=== PATIENT | male | born 1955 | race Caucasian/White ===

== ENCOUNTER 2018-08-07 20:56 | Emergency (ER) | payer OTHER ==
[~2018-08-07] VITALS: Ht 175.3 cm; Wt 80.0 kg
[2018-08-07 20:59] VITALS: Ht 175.3 cm; Wt 80.0 kg
[2018-08-08] MEDS ORDERED: KETOROLAC 30 MG INJ IM STA (00:33)
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
[2018-08-08] MEDS ORDERED: DEXAMETHASONE 10 MG/ML 1 ML INJ IM ONE (01:00)
[2018-08-08] MEDS ORDERED: NAPR-985 PO (01:07)
[2018-08-08] MEDS ORDERED: PRED20TA PO (01:07)
[2018-08-08] MEDS ORDERED: TRAM50TA2 PO (01:10)
[2018-08-08 01:14] VITALS: BP 135/65; PULSE 65; RESP 20
== END 2018-08-08 01:35 | disposition home or self-care (01) ==
LOC: FTE 20:56
DX: M54.9 Dorsalgia, unspecified (principal); E11.9 Type 2 diabetes mellitus without complications
CPT/HCPCS: 96372; J1100; J1885; Z7502

== ENCOUNTER 2018-08-29 19:36 | Emergency (ER) | payer OTHER ==
[~2018-08-29] VITALS: Wt 87.7 kg
[~2018-08-29 19:36] MED LIST: NAPR-985 PO; PRED20TA PO; TRAM50TA2 PO
--- NOTE | 2018-08-29 20:58 | ERD ---
ER Documentation Chief Complaint Chief Complaint BACK PAIN X'S 1 WEEK HPI This is a 62-year-old male who presents emergency department with complaints of lower back pain that radiates to bilateral lower extremity. Stated that this has been going on for about a week. Stated he was here last 08/07/2018 and was given a shot of medicine and this has relieved him. He also stated that he has history of chronic lower back pain and sciatica. Pain was described as sharp that radiates to bilateral lower extremities. Denies headache, head injury, loss of consciousness, dizziness, neck pain, neck stiffness, throat pain, difficulty swallowing, difficulty breathing lying flat, shoulder pain, chest pain, abdominal pain, nausea, vomiting, constipation, diarrhea, urinary symptoms, loss of bowel and bladder control, trauma, injury, falls, difficulty walking due to pain, numbness or tingling sensation, calf pain, recent travel, recent major surgery in the last 3 weeks, calf pain, recent long travel, recent exposure to any illness, recent antibiotic use in the last 3 months, fever, chills, seizures. Past medical history: Diabetes. Chronic pain. Surgical history: Social: Denies smoking, use of alcoholic beverages, use of illegal drugs. ROS All systems reviewed and are negative except as per history of present illness. Medications Home Meds Active Scripts Tramadol HCl (Tramadol HCl) 50 Mg Tablet, 50 MG PO Q4 PRN for SEVERE PAIN LEVEL 7-10, #5 TAB Prov:KATY MCNEAL 08/29/18 Omeprazole* (Omeprazole*) 40 Mg Capsule.dr, 40 MG PO DAILY, #30 CAP Prov:KATY MCNEAL 08/29/18 Ibuprofen* (Motrin*) 800 Mg Tab, 800 MG PO Q6H PRN for PAIN AND OR ELEVATED TEMP, #20 TAB Prov:KATY MCNEAL 08/29/18 Tramadol HCl (Tramadol HCl) 50 Mg Tablet, 50 MG PO Q6 PRN for PAIN, #7 TAB Take as needed for sever pain 7-10 Prov:CORNELL BARRAZA PA-C 08/08/18 Naproxen* (Naprosyn*) 500 Mg Tablet, 500 MG PO BID PRN for PAIN AND/OR INFLAMMATION, #30 TAB Prov:CORNELL BARRAZA PA-C 08/08/18 Prednisone* (Prednisone*) 20 Mg Tab, 40 MG PO DAILY for 4 Days, TAB Prov:CORNELL BARRAZA BENJI 08/08/18 Allergies Allergies: Coded Allergies: No Known Allergy (Unverified , 08/07/18) PMhx/Soc History of Surgery: No Anesthesia Reaction: No Hx Neurological Disorder: No Hx Respiratory Disorders: No Hx Cardiac Disorders: Yes Hx Psychiatric Problems: No Hx Alcohol Use: No Hx Substance Use: No Hx Tobacco Use: No Smoking Status: Never smoker Physical Exam Vitals Vital Signs Date Temp Pulse Resp B/P (MAP) Pulse Ox O2 O2 Flow FiO2 Time Delivery Rate 08/29/18 97.9 59 18 146/74 96 Room Air 21:57 (98) 08/29/18 98.2 64 18 173/76 99 20:07 (108) Physical Exam Const: No acute distress Head: Atraumatic Eyes: Normal Conjunctiva ENT: Normal External Ears, Nose and Mouth. Neck: Full range of motion. No meningismus. Resp: Clear to auscultation bilaterally Cardio: Regular rate and rhythm, no murmurs Abd: Soft, non tender, non distended. Normal bowel sounds. There is no pulsating abdominal mass. Skin: No petechiae or rashes Back: No midline or flank tenderness. C-spine/T-spine/L-spine are midline with good and full range of motion and is no swelling/deformity/bulging/point of tenderness. Bilateral hips are stable and unremarkable. Ext: No cyanosis, or edema. Positive left straight leg test. Positive right straight leg test. Bilateral pedal pulses are within normal limits. Bilateral lower extremities has no deformity/swelling/discoloration. No calf tenderness bilaterally. Bilateral pedal pulses are within normal limits. Capillary refills are less than 2 seconds. No neurovascular deficits. Neur: Awake and alert. No neurological deficits. Psych: Normal Mood and Affect Results 24 hrs Current Medications Medications Dose Sig/Kacy Start Time Status Last (Trade) Ordered Route PRN Stop Time Admin Dose Reason Admin 10 mg ONCE ONCE 08/29/18 DC 08/29/18 Dexamethasone IM 21:30 21:24 (Decadron) 08/29/18 21:31 Morphine 4 mg ONCE STAT 08/29/18 DC 08/29/18 Sulfate IM 21:03 21:26 (morphine) 08/29/18 21:04 Ketorolac 30 mg ONCE STAT 08/29/18 DC 08/29/18 Tromethamine IM 21:04 21:21 (Toradol) 08/29/18 21:05 Famotidine 40 mg ONCE ONCE 08/29/18 DC 08/29/18 (Pepcid) PO 21:30 21:21 08/29/18 21:31 Procedures/MDM Diagnostic tests: Clinical exam. Patient refuses imaging and blood works. Stat ed that he just needs his pain to be controlled. Treatment: Dexamethasone IM. Morphine IM. Toradol IM. Re-evaluation: Denies back pain. Denies headache, dizziness, neck pain, chest pain, abdominal pain. Abdomen is soft and nondistended. No pulsating abdominal mass. No calf tenderness bilaterally. Differential diagnosis I have low suspicion for sepsis, AAA, obstructing kidney stones, septic stone, renal failure, DVT, fractures. Final diagnosis: Chronic lower back pain. Sciatica. Prescription: Motrin. Tramadol. Follow-up with PCP in the next 24-48 hours. PCP to refer patient to pain specialist in the next 3 to 4 days. Come back here in the emergency department for any new symptoms or any worsening symptoms. All questions and concerns were answered. Patient and family members verbalized understanding and agreed with plan of care. Hemodynamically stable on discharge. Departure Diagnosis: Primary Impression: Back pain Additional Impressions: Injury of back Chronic pain Sciatica Condition: Stable Additional Instructions: Follow-up with PCP in the next 24-48 hours. PCP to refer patient to pain specialist in the next 3 to 4 days. Come back here in the emergency department for any new symptoms or any worsening symptoms. KATY MCNEAL August 29, 2018 20:58
[2018-08-29] MEDS ORDERED: morphine 4 MG/ML VIAL IM STA (21:03)
[2018-08-29] MEDS ORDERED: KETOROLAC 30 MG INJ IM STA (21:04)
[2018-08-29] MEDS ORDERED: OMEP40CA6 PO (21:24)
[2018-08-29] MEDS ORDERED: IBUP800T48 PO (21:24)
[2018-08-29] MEDS ORDERED: TRAM50TA2 PO (21:24)
[2018-08-29] MEDS ORDERED: FAMOTIDINE 20 MG TAB PO ONE (21:30)
[2018-08-29] MEDS ORDERED: DEXAMETHASONE 10 MG/ML 1 ML INJ IM ONE (21:30)
[2018-08-29 21:57] VITALS: BP 146/74; PULSE 59; RESP 18
== END 2018-08-29 21:59 | disposition home or self-care (01) ==
LOC: FTE 19:36
DX: S39.92XA Unspecified injury of lower back, initial encounter (principal); E11.9 Type 2 diabetes mellitus without complications; M54.40 Lumbago with sciatica, unspecified side; X58.XXXA Exposure to other specified factors, initial encounter; Y92.9 Unspecified place or not applicable
CPT/HCPCS: 96372; J1100; J1885; J2270; Z7502; Z7610